=== PATIENT | female | born 1970 ===

== ENCOUNTER 2019-08-18 20:04 | Inpatient (IN) | payer OTHER ==
[~2019-08-18] VITALS: Ht 170 cm; Wt 81.0 kg
--- NOTE | 2019-08-18 20:20 | ED GI ---
General Stated Complaint: NAUSEA,BLOOD IN STOOL Source of Information: Patient Exam Limitations: No Limitations History of Present Illness Date Seen by Provider: Aug 18, 2019 Time Seen by Provider: 20:10 Initial Comments 49-year-old female who was sent to the emergency room from [facility] for hemoglobin of 6.5 and bright red rectal bleeding for the past 4 days and nausea. She denies any abdominal pain. She is alert and oriented on arrival to the emergency room. Timing/Duration: 3-4 Days Associated Symptoms: Nausea/Vomiting Allergies and Home Medications Allergies Coded Allergies: No Known Allergies (Verified Allergy, Unknown, 07/18/06) Patient Home Medication List Home Medication List Reviewed: Yes Review of Systems Review of Systems Constitutional: see HPI; No chills, No fever Gastrointestinal: See HPI, Nausea, Rectal Bleeding All Other Systems Reviewed Negative Unless Noted: Yes Past Eamhccx-Vyapht-Rrewni Hx Past Med/Social Hx: Reviewed Nursing Past Med/Soc Hx Patient Social History Recent Foreign Travel: No Contact w/Someone Who Travel: No Family Medical History Reviewed Nursing Family Hx Physical Exam Vital Signs Vital Signs - First Documented 08/18/19 20:20 Temp 37.0 Pulse 95 Resp 18 B/P (MAP) 126/74 (91) Pulse Ox 100 O2 Delivery Room Air Capillary Refill : Height/Weight/BMI Height: '" Weight: lbs. oz. kg; BMI Method: General Appearance: WD/WN, no apparent distress HEENT: pale conjunctivae (R), pale conjunctivae (L) Respiratory: chest non-tender, lungs clear, normal breath sounds, no respiratory distress, no accessory muscle use Cardiovascular: normal peripheral pulses, regular rate, rhythm, no edema, no gallop, no JVD, no murmur Gastrointestinal: normal bowel sounds, non tender, soft, no organomegaly, no pulsatile mass Genital/Rectal: normal rectal exam (no external hemorrhoids noted), other (caitie red blood. Exam was assisted by Abby GUEVARA. ) Extremities: normal capillary refill Neurologic/Psychiatric: alert, normal mood/affect, oriented x 3 Skin: normal color, warm/dry Progress/Results/Core Measures Results/Orders Lab Results Laboratory Tests Test 08/18/19 20:18 08/18/19 21:00 Range/Units White Blood Count 10.9 4.3-11.0 10^3/uL Red Blood Count 2.16 L 4.35-5.85 10^6/uL Hemoglobin 6.7 *L 11.5-16.0 G/DL Hematocrit 20 *L 35-52 % Mean Corpuscular Volume 92 80-99 FL Mean Corpuscular Hemoglobin 31 25-34 PG Mean Corpuscular Hemoglobin Concent 34 32-36 G/DL Red Cell Distribution Width 12.9 10.0-14.5 % Platelet Count 274 130-400 10^3/uL Mean Platelet Volume 9.5 7.4-10.4 FL Neutrophils (%) (Auto) 50 42-75 % Lymphocytes (%) (Auto) 43 12-44 % Monocytes (%) (Auto) 6 0-12 % Eosinophils (%) (Auto) 1 0-10 % Basophils (%) (Auto) 0 0-10 % Neutrophils # (Auto) 5.5 1.8-7.8 X 10^3 Lymphocytes # (Auto) 4.7 H 1.0-4.0 X 10^3 Monocytes # (Auto) 0.6 0.0-1.0 X 10^3 Eosinophils # (Auto) 0.1 0.0-0.3 10^3/uL Basophils # (Auto) 0.0 0.0-0.1 10^3/uL Sodium Level 136 135-145 MMOL/L Potassium Level 3.2 L 3.6-5.0 MMOL/L Chloride Level 105 98-107 MMOL/L Carbon Dioxide Level 22 21-32 MMOL/L Anion Gap 9 5-14 MMOL/L Blood Urea Nitrogen 19 H 7-18 MG/DL Creatinine 0.62 0.60-1.30 MG/DL Estimat Glomerular Filtration Rate > 60 BUN/Creatinine Ratio 31 Glucose Level 122 H 70-105 MG/DL Calcium Level 9.0 8.5-10.1 MG/DL Corrected Calcium 9.1 8.5-10.1 MG/DL Total Bilirubin 0.3 0.1-1.0 MG/DL Aspartate Amino Transf (AST/SGOT) 19 5-34 U/L Alanine Aminotransferase (ALT/SGPT) 28 0-55 U/L Alkaline Phosphatase 92 40-136 U/L Total Protein 6.0 L 6.4-8.2 GM/DL Albumin 3.9 3.2-4.5 GM/DL Amylase Level 43 25-125 U/L Lipase 31 8-78 U/L Urine Color YELLOW Urine Clarity CLEAR Urine pH 5 5-9 Urine Specific [place] 1.025 H 1.016-1.022 Urine Protein NEGATIVE NEGATIVE Urine Glucose (UA) NEGATIVE NEGATIVE Urine Ketones NEGATIVE NEGATIVE Urine Nitrite NEGATIVE NEGATIVE Urine Bilirubin NEGATIVE NEGATIVE Urine Urobilinogen NORMAL NORMAL MG/DL Urine Leukocyte Esterase 1+ H NEGATIVE Urine RBC (Auto) 1+ H NEGATIVE Urine RBC 0-2 /HPF Urine WBC 5-10 H /HPF Urine Squamous Epithelial Cells 2-5 /HPF Urine Crystals NONE /LPF Urine Bacteria FEW H /HPF Urine Casts PRESENT /LPF Urine Hyaline Casts 2-5 H /LPF Urine Mucus SMALL H /LPF Urine Culture Indicated YES My Orders Orders - JAYE GLOVER Comprehensive Metabolic Panel (08/18/19 20:07) Lipase (08/18/19 20:07) Amylase (08/18/19 20:07) Ua Culture If Indicated (08/18/19 20:07) Ed Iv/Invasive Line Start (08/18/19 20:07) Cbc With Automated Diff (08/18/19 20:07) Type And Screen (08/18/19 20:07) Ondansetron Injection (Zofran Injectio (08/18/19 21:15) Medications Given in ED Current Medications Medications Dose Ordered Sig/Marge Route Start Time Stop Time Status Last Admin Dose Admin Ondansetron HCl 4 mg ONCE ONCE IVP 08/18/19 21:15 08/18/19 21:16 DC 08/18/19 21:11 4 MG Vital Signs/I&O 08/18/19 20:20 Temp 37.0 Pulse 95 Resp 18 B/P (MAP) 126/74 (91) Pulse Ox 100 O2 Delivery Room Air Departure Communication (Admissions) Time/Spoke to Admitting Phy: 20:[address] German and she agrees to accept the patient to her services. Time/Spoke to Consulting Phy: 20:19 Discussed Denys and he agrees to consult on the patient and he recommends a clear liquid diet and plan for scope tomorrow. Impression Primary Impression: GI bleed Additional Impression: Anemia Disposition: ADMITTED INPATIENT Condition: Stable/Unchanged Admissions Decision to Admit Reason: Admit from ER (General) Decision to Admit/Date: Aug 18, 2019 Time/Decision to Admit Time: 21:45 Departure-Patient Inst. Referrals: [facility] (PCP/Family) Primary Care Physician JAYE GLOVER Aug 18, 2019 20:20
[2019-08-18 20:24] LABS: BASOPHILS % (AUTO) 0 % (0-10); EOSINOPHILS # (AUTO) 0.1 10^3/uL (0.0-0.3); EOSINOPHILS % (AUTO) 1 % (0-10); LYMPHOCYTES # (AUTO) 4.7 X 10^3 (1.0-4.0); LYMPHOCYTES % (AUTO) 43 % (12-44); MEAN CORPUSCULAR HEMOGLOBIN 31 PG (25-34); MEAN CORPUSCULAR HGB CONC 34 G/DL (32-36); MEAN CORPUSCULAR VOLUME 92 FL (80-99); MEAN PLATELET VOLUME 9.5 FL (7.4-10.4); MONOCYTES # (AUTO) 0.6 X 10^3 (0.0-1.0); MONOCYTES % (AUTO) 6 % (0-12); NEUTROPHILS # (AUTO) 5.5 X 10^3 (1.8-7.8); NEUTROPHILS % (AUTO) 50 % (42-75); PLATELET COUNT 274 10^3/uL (130-400); RED CELL DISTRIBUTION WIDTH 12.9 % (10.0-14.5); WHITE BLOOD COUNT 10.9 10^3/uL (4.3-11.0)
[2019-08-18 20:26] LABS: HEMATOCRIT 20 % (35-52); HEMOGLOBIN 6.7 G/DL (11.5-16.0)
[2019-08-18 20:48] LABS: ALANINE AMINOTRANSFERASE 28 U/L (0-55); ALBUMIN 3.9 GM/DL (3.2-4.5); ALKALINE PHOSPHATASE 92 U/L (40-136); AMYLASE 43 U/L (25-125); BILIRUBIN,TOTAL 0.3 MG/DL (0.1-1.0); BUN/CREATININE RATIO 31; CARBON DIOXIDE 22 MMOL/L (21-32); CHLORIDE 105 MMOL/L (98-107); CREATININE SERUM 0.62 MG/DL (0.60-1.30); GFR ESTIMATED > 60; GLUCOSE 122 MG/DL (70-105); LIPASE 31 U/L (8-78); POTASSIUM 3.2 MMOL/L (3.6-5.0); SODIUM 136 MMOL/L (135-145)
[2019-08-18] MEDS ORDERED: ONDANSETRON 4 MG/2 ML (SDV) Z0FRAN IVP ONE (21:15)
[2019-08-18 21:22] LABS: BILIRUBIN,URINE NEGATIVE (NEGATIVE); CLARITY,URINE CLEAR; COLOR,URINE YELLOW; GLUCOSE, URINE (UA) NEGATIVE (NEGATIVE); KETONES,URINE NEGATIVE (NEGATIVE); LEUKOCYTE ESTERASE ,URINE 1+ (NEGATIVE); NITRITE,URINE NEGATIVE (NEGATIVE); PH,URINE 5 (5-9); PROTEIN,URINE NEGATIVE (NEGATIVE); UROBILINOGEN,URINE NORMAL (NORMAL)
[2019-08-18 21:37] LABS: RBC,URINE 0-2 /HPF
[2019-08-18 21:38] LABS: BACTERIA,URINE FEW /HPF
[2019-08-18] MEDS ORDERED: fentaNYL INJECTION 100 MCG/2 ML AMP IVP ONE (21:45)
--- NOTE | 2019-08-18 22:05 | NUR ---
ISABEL PACE G admitted to room 409-1, with an admitting diagnosis of GI BLEED AND ANEMIA, on 08/18/19 from ED via , accompanied by ED STAFF AND AKOSUA.ISABEL PACE introduced to surroundings, call light, bed controls, phone, TV, temperature control, lights, meal times, smoking policy, visitor policy, side rail policy, bathrooms and showers. Patient Rights given to patient in the handbook. ISABEL PACE verbalizes understanding that [facility] is not responsible for the loss or damage to any personal effects or valuables that are kept in the patients posession during their hospitalization. ISABEL PACE verbalizes understanding of Interdisciplinary Patient Education. Patient and/or family were informed about the Rapid Response Team and its purpose.
[2019-08-18 22:30] VITALS: BP 123/69
[2019-08-18] MEDS ORDERED: ONDANSETRON 4 MG/2 ML (SDV) Z0FRAN IV PRN (23:00)
[2019-08-18] MEDS ORDERED: fentaNYL INJECTION 100 MCG/2 ML AMP IV PRN (23:00)
[2019-08-18 23:54] VITALS: BP 114/68
[2019-08-19] VITALS (12 sets, daily range): BP systolic 100–115; BP diastolic 60–75
[2019-08-19 06:16] LABS: BASOPHILS % (AUTO) 1 % (0-10); EOSINOPHILS # (AUTO) 0.1 10^3/uL (0.0-0.3); EOSINOPHILS % (AUTO) 1 % (0-10); LYMPHOCYTES # (AUTO) 2.6 X 10^3 (1.0-4.0); LYMPHOCYTES % (AUTO) 40 % (12-44); MEAN CORPUSCULAR HEMOGLOBIN 31 PG (25-34); MEAN CORPUSCULAR HGB CONC 32 G/DL (32-36); MEAN CORPUSCULAR VOLUME 94 FL (80-99); MEAN PLATELET VOLUME 9.6 FL (7.4-10.4); MONOCYTES # (AUTO) 0.5 X 10^3 (0.0-1.0); MONOCYTES % (AUTO) 7 % (0-12); NEUTROPHILS # (AUTO) 3.4 X 10^3 (1.8-7.8); NEUTROPHILS % (AUTO) 51 % (42-75); PLATELET COUNT 257 10^3/uL (130-400); RED CELL DISTRIBUTION WIDTH 13.3 % (10.0-14.5); WHITE BLOOD COUNT 6.6 10^3/uL (4.3-11.0)
[2019-08-19 06:20] LABS: HEMATOCRIT 19 % (35-52); HEMOGLOBIN 6.1 G/DL (11.5-16.0)
--- NOTE | 2019-08-19 06:35 | NUR ---
DR BUSBY NOTIFIED ABOUT PT CRITICAL HGB OF 6.1 [address] 19[address] HANNAH INFORMED ABOUT PT LABS PER DR BUSBY ORDER. DR HANNAH NEW ORDERS TO GIVE 2 UNITS OF BLOOD.
[2019-08-19 06:40] LABS: ALANINE AMINOTRANSFERASE 26 U/L (0-55); ALBUMIN 3.6 GM/DL (3.2-4.5); ALKALINE PHOSPHATASE 85 U/L (40-136); BILIRUBIN,TOTAL 0.3 MG/DL (0.1-1.0); BUN/CREATININE RATIO 24; CALCIUM 8.3 MG/DL (8.5-10.1); CARBON DIOXIDE 25 MMOL/L (21-32); CHLORIDE 108 MMOL/L (98-107); CREATININE SERUM 0.59 MG/DL (0.60-1.30); GFR ESTIMATED > 60; GLUCOSE 109 MG/DL (70-105); POTASSIUM 3.3 MMOL/L (3.6-5.0); SODIUM 139 MMOL/L (135-145); TOTAL PROTEIN 5.7 GM/DL (6.4-8.2)
[2019-08-19] MEDS ORDERED: NS IV 500 ML 500 ML IV SCH (08:00)
[2019-08-19 08:01] LABS: BASOPHILS % (MANUAL) 0 %; EOSINOPHILS % (MANUAL) 1 %; LYMPHOCYTES % (MANUAL) 41 %; MONOCYTES % (MANUAL) 3 %; NEUTROPHILS % (MANUAL) 55 %
--- NOTE | 2019-08-19 08:57 | Consultation - Surgery ---
MONIKA JANE,MED STUDENT 08/19/19 0857: History of Present Illness History of Present Illness Patient Consulted On(mi/time) 08/19/19 08:49 Date Seen by Provider: Aug 19, 2019 Time Seen by Provider: 08:30 Reason for Visit: Anemia History of Present Illness Surgery consulted regarding GI bleed 49 yo female presents today with a 4 day history of weakness, dizziness, d iarrhea, and abdominal pain. The abdominal pain is diffuse and characterized as an ache. She states the symptoms began on sunday08/15/19. She had 3 episodes of black diarrhea with bright red blood apparent. She had another episode of a black formed stool yesterday. She denies any symptoms similar to this prior. She has had a loss of appetite since Sunday. She has a 1 year history of heartburn that is relieved with Tums and worsened with spicy foods and laying flat. She admits to nausea but denies vomiting. She complains of a migraine, which she gets often and is similar in intensity and character to her previous migraines. Allergies and Home Medications Allergies Coded Allergies: NKANo Known Allergies (Verified Allergy, Unknown, 07/18/06) Home Medications Ibuprofen 200 Mg Tablet, 400 MG PO Q8H PRN for PAIN-MILD, (Reported) Past Vmxvgjj-Bdfguh-Ukwrql Hx Patient Social History Alcohol Use: Denies Use Recreational Drug Use: No Smoking Status: Never a Smoker 2nd Hand Smoke Exposure: No Recent Foreign Travel: No Contact w/Someone Who Travel: No Recent Infectious Disease Expo: No Recent Hopitalizations: No Seasonal Allergies Seasonal Allergies: No Surgeries History of Surgeries: Yes Surgeries: Section (2005) Respiratory History of Respiratory Disorde: No Cardiovascular History of Cardiac Disorders: No Neurological History of Neurological Disord: No 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 System : 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) Genitourinary History of Genitourinary Disor: No Gastrointestinal History of Gastrointestinal Di: No Musculoskeletal History of Musculoskeletal Dis: No Endocrine History of Endocrine Disorders: No HEENT History of HEENT Disorders: No Loss of Vision: Denies Hearing Impairment: Denies Cancer History of Cancer: No Psychosocial History of Psychiatric Problem: No Integumentary History of Skin or Integumenta: No Blood Transfusions History of Blood Disorders: No Family Medical History Significant Family History: Diabetes (sister), Other Conditions/Hx (patient denies any family history of colon problems including UC, cancer) Review of Systems-General Constitutional: dizziness; No fever; weakness EENTM: mouth pain (pain in tongue); No blurred vision, No double vision, No vision loss, No throat pain Respiratory: No cough; short of breath; No wheezing Cardiovascular: No chest pain, No edema Gastrointestinal: abdominal pain (diffuse); No constipation; diarrhea; No hematemesis; heartburn, loss of appetite, melena, nausea; No vomiting Genitourinary: No hematuria Musculoskeletal: No joint pain, No muscle pain Skin: No rash Psychiatric/Neurological: Anxiety, Depressed, Headache; Denies Numbness, Denies Paresthesia Physical Exam-General Problems Physical Exam Vital Signs Vital Signs - First Documented 08/18/19 20:20 Temp 37.0 Pulse 95 Resp 18 B/P (MAP) 126/74 (91) Pulse Ox 100 O2 Delivery Room Air Capillary Refill : Less Than 3 Seconds General Appearance: WD/WN, no apparent distress Eyes: Bilateral Eye PERRL, Bilateral Eye EOMI HEENT: PERRL/EOMI, pharynx normal Neck: non-tender, supple Respiratory: chest non-tender, lungs clear, normal breath sounds, no respiratory distress, no accessory muscle use Cardiovascular: regular rate, rhythm, no edema, no murmur Gastrointestinal: normal bowel sounds, non tender, soft, no organomegaly; No distended, No guarding, No rebound Extremities: normal range of motion, non-tender, no pedal edema, no calf tenderness Neurologic/Psychiatric: no motor/sensory deficits, alert, normal mood/affect, oriented x 3 Skin: normal color, warm/dry Lymphatic: no adenopathy Data Review Labs Laboratory Tests 08/18/19 20:18: White Blood Count 10.9, Red Blood Count 2.16L, Hemoglobin 6.7*L, Hematocrit 20*L , Mean Corpuscular Volume 92, Mean Corpuscular Hemoglobin 31, Mean Corpuscular Hemoglobin Concent 34, Red Cell Distribution Width 12.9, Platelet Count 274, Mean Platelet Volume 9.5, Neutrophils (%) (Auto) 50, Lymphocytes (%) (Auto) 43, Monocytes (%) (Auto) 6, Eosinophils (%) (Auto) 1, Basophils (%) (Auto) 0, Neutrophils # (Auto) 5.5, Lymphocytes # (Auto) 4.7H, Monocytes # (Auto) 0.6, Eosinophils # (Auto) 0.1, Basophils # (Auto) 0.0, Sodium Level 136, Potassium Level 3.2L, Chloride Level 105, Carbon Dioxide Level 22, Anion Gap 9, Blood Urea Nitrogen 19H, Creatinine 0.62, Estimat Glomerular Filtration Rate > 60, BUN/Creatinine Ratio 31, Glucose Level 122H, Calcium Level 9.0, Corrected Calcium 9.1, Total Bilirubin 0.3, Aspartate Amino Transf (AST/SGOT) 19, Alanine Aminotransferase (ALT/SGPT) 28, Alkaline Phosphatase 92, Total Protein 6.0L, Albumin 3.9, Amylase Level 43, Lipase 31 08/18/19 21:00: Urine Color YELLOW, Urine Clarity CLEAR, Urine pH 5, Urine Specific [place] 1.025H, Urine Protein NEGATIVE, Urine Glucose (UA) NEGATIVE, Urine Ketones NEGATIVE, Urine Nitrite NEGATIVE, Urine Bilirubin NEGATIVE, Urine Urobilinogen NORMAL, Urine Leukocyte Esterase 1+H, Urine RBC (Auto) 1+H, Urine RBC 0-2, Urine WBC 5-10H, Urine Squamous Epithelial Cells 2-5, Urine Crystals NONE, Urine Bacteria FEWH, Urine Casts PRESENT, Urine Hyaline Casts 2-5H, Urine Mucus SMALLH , Urine Culture Indicated YES 08/19/19 05:55: White Blood Count 6.6, Red Blood Count 2.00L, Hemoglobin 6.1*L, Hematocrit 19*L, Mean Corpuscular Volume 94, Mean Corpuscular Hemoglobin 31, Mean Corpuscular Hemoglobin Concent 32, Red Cell Distribution Width 13.3, Platelet Count 257, Mean Platelet Volume 9.6, Neutrophils (%) (Auto) 51, Lymphocytes (%) (Auto) 40, Monocytes (%) (Auto) 7, Eosinophils (%) (Auto) 1, Basophils (%) (Auto) 1, Neutrophils # (Auto) 3.4, Lymphocytes # (Auto) 2.6, Monocytes # (Auto) 0.5, Eosinophils # (Auto) 0.1, Basophils # (Auto) 0.0, Sodium Level 139, Potassium Level 3.3L, Chloride Level 108H, Carbon Dioxide Level 25, Anion Gap 6, Blood Urea Nitrogen 14, Creatinine 0.59L, Estimat Glomerular Filtration Rate > 60, BUN/Creatinine Ratio 24, Glucose Level 109H, Calcium Level 8.3L, Corrected Ca lcium 8.6, Total Bilirubin 0.3, Aspartate Amino Transf (AST/SGOT) 19, Alanine Aminotransferase (ALT/SGPT) 26, Alkaline Phosphatase 85, Total Protein 5.7L, Albumin 3.6, Neutrophils % (Manual) 55, Lymphocytes % (Manual) 41, Monocytes % ( Manual) 3, Eosinophils % (Manual) 1, Basophils % (Manual) 0 Assessment/Plan Assessment/Plan Assessment/Plan Anemia Possible GI bleed Melena Hematochezia Continue clear liquid diet as tolerated. Continue IVF, antiemetics, pain control. Currently getting 2 units of packed RBC. Will start bowel prep for upper and lower endoscopy planned for tomorrow morning. Clinical Quality Measures DVT/VTE Risk/Contraindication: Risk Factor Score Per Nursin RFS Level Per Nursing on Admit: 1=Low/No VTE PPX JORDAN MCFARLANE DO 08/19/19 1415: History of Present Illness History of Present Illness Time Seen by Provider: 08:35 History of Present Illness Pt denied any previous occurence of rectal bleeding. She stated she felt short of breath while at work the other day. Allergies and Home Medications Allergies Coded Allergies: NKANo Known Allergies (Verified Allergy, Unknown, 07/18/06) Home Medications Ibuprofen 200 Mg Tablet, 400 MG PO Q8H PRN for PAIN-MILD, (Reported) Patient Home Medication List Home Medication List Reviewed: Yes Review of Systems-General Other Pt denied any hx of abnormal bleeding or bruising Physical Exam-General Problems Physical Exam Lymphatic: no adenopathy (neck, axilla or groin) Assessment/Plan Assessment/Plan Assessment/Plan Consent for Colonoscopy with EGD possible biopsy. Discussed risks and complications, not limited to pain, bleeding, infection, intestinal perforation or esophageal rupture. All questions answered to her and her 's satisfaction. Supervisory-Addendum Brief Verification & Attestation Participated in pt care: history, MDM, physical Personally performed: exam, history, MDM Care discussed with: Medical Student Procedures: n/a Verification and Attestation of Medical Student E/M Service A medical student performed and documented this service in my presence. I reviewed and verified all information documented by the medical student and made modifications to such information, when appropriate. I personally performed the physical exam and medical decision making. Jordan Mcfarlane, Aug 19, 2019,14:14 MONIKA JANE,MED STUDENT Aug 19, 2019 08:57 JORDAN MCFARLANE DO Aug 19, 2019 14:15
[2019-08-19] MEDS ORDERED: IBUP-30 PO (09:26)
[2019-08-19] MEDS: HYDROmorphone 2 MG/ML VIAL (DILAUDID) IV PRN (10:49)
--- NOTE | 2019-08-19 12:07 | NUR ---
Pt is [employer] and currently NPO. 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
--- NOTE | 2019-08-19 14:05 | NUR ---
2 units blood administered this am. Bags were scanned in room, and information did not save. Verified with Marga GUEVARA.
[2019-08-19] MEDS ORDERED: BISACODYL 5 MG (DULCOLAX) TABLET PO SCH ×2 (14:40→16:00)
[2019-08-19] MEDS ORDERED: POLYETHYLENE GLYCOL 17 GM (MIRALAX) PACK PO NR (18:00)
--- NOTE | 2019-08-19 19:18 | History & Physical-Hospitalist ---
JOHANNY YEUNG [facility] 08/19/191917: History of Present Illness HPI/Chief Complaint CC: Emesis and Nausea Mrs. Guzman is a 49 yo female presenting with blood in her stool as well as N/V. Her symptoms began Sunday where she noticed blood in her stool after a BM. She noticed that her stool was darker in nature and that there was free floating blood in the toilet water. After that she experienced intermittent nausea. Up until sunday morning, she was was experiencing dry heaving. On sunday she forced herself to throw up as an attempt to alleviate her nausea. She also states that her appetite has been greatly reduced and has not really eaten in a few days. She also states that she has felt weak and shaky. Her stomach feels like it is constantly trying to purge contents in it even though she hasn't eaten anything. She states that she feels no pain and has taken nothing to alleviate her symptoms. She has taken Advil PRN for Migraine headaches for which she suffers. from. Her was used to help translate and obtain information. Source: patient, family Exam Limitations: language barrier Date Seen 08/19/19 Time Seen by a Provider: 12:00 Attending Physician Licha Busby DO [facility] Referring Physician Date of Admission Aug 18, 2019 at 21:20 Home Medications & Allergies Home Medications Reviewed patient Home Medication Reconciliation performed by pharmacy medication reconciliations hvac service technician and/or nursing. Patients Allergies have been reviewed. Allergies Allergies Coded Allergies NKANo Known Allergies (Verified Allergy, Unknown, 07/18/06) Past Neojask-Dbfvft-Ugpiks Hx Past Med/Social Hx: Reviewed Nursing Past Med/Soc Hx Patient Social History Marrital Status: Number of Children: 4 Number of living children: 4 Employed/Student: employed Alcohol Use: Denies Use Recreational Drug Use: No Smoking Status: Never a Smoker 2nd Hand Smoke Exposure: No Recent Foreign Travel: No Contact w/other who traveled: No Recent Hopitalizations: No Recent Infectious Disease Expo: No Seasonal Allergies Seasonal Allergies: No Past Medical History Surgeries: Section (2005) Currently Using CPAP: No Currently Using BIPAP: No : No Menopausal (last period 3 years ago) Loss of Vision: Denies Hearing Impairment: Denies History of Blood Disorders: No Family History Reviewed Nursing Family Hx Diabetes (sister), Other Conditions/Hx (patient denies any family history of colon problems including UC, cancer) Review of Systems Constitutional: No no symptoms reported, No see HPI, No chills, No diaphoresis, No dizziness, No fever, No malaise, No weakness, No weight gain, No weight loss, No other EENTM: No see HPI, No no symptoms reported, No ear discharge, No hearing loss, No ear pain, No blurred vision, No double vision, No eye pain, No tearing, No vision loss, No dental problems, No hoarseness, No mouth pain, No mouth swelling, No epistaxis, No nose congestion, No nose pain, No throat pain, No throat swelling, No other Respiratory: No no symptoms reported, No see HPI, No cough, No dyspnea on exertion, No hemoptysis, No orthopnea, No phlegm, No short of breath, No stridor, No wheezing, No other Cardiovascular: No no symptoms reported, No see HPI, No chest pain, No edema, No Hx of Intervention, No palpitations, No syncope, No vascular heart diseas, No other Gastrointestinal: No RUQ, No LUQ, No RLQ, No LLQ, No no symptoms reported, No see HPI, No abdominal pain, No constipation, No diarrhea, No dysphagia, No hematemesis, No heartburn, No jaundice, No loss of appetite; melena, nausea, vomiting; No other Genitourinary: No no symptoms reported, No see HPI, No decreased output, No discharge, No dysuria, No frequency, No hematuria, No hesitancy, No incontinence, No nocturia, No pain, No other : No Musculoskeletal: No no symptoms reported, No see HPI, No back pain, No gout, No joint pain, No joint swelling, No muscle pain, No muscle stiffness, No muscle cramps, No muscle twitching, No muscle weakness, No neck pain, No other Skin: No no symptoms reported, No see HPI, No change in color, No change in hair/nails, No dryness, No hx of skin cancer, No lesions, No lumps, No pruritus, No rash, No other Psychiatric/Neurological: Denies No Symptoms Reported, Denies See HPI, Denies Anxiety, Denies Depressed, Denies Emotional Problems, Denies Headache, Denies Numbness, Denies Paresthesia, Denies Pre-Existing Deficit, Denies Seizure, Denies Tingling, Denies Tremors, Denies Weakness, Denies Other Physical Exam Physical Exam Vital Signs Vital Signs - First Documented 08/18/19 20:20 Temp 37.0 Pulse 95 Resp 18 B/P (MAP) 126/74 (91) Pulse Ox 100 O2 Delivery Room Air Capillary Refill : Less Than 3 Seconds Height, Weight, BMI Height: '" Weight: lbs. oz. kg; 28.02 BMI Method: General Appearance: No Apparent Distress, WD/WN Eyes: Bilateral Eye Normal Inspection, Bilateral Eye PERRL, Bilateral Eye EOMI HEENT: PERRL/EOMI, Normal ENT Inspection, Pharynx Normal, Moist Mucous Membranes Neck: Normal Inspection, Non Tender, Supple Respiratory: Chest Non Tender, Lungs Clear, Normal Breath Sounds, No Accessory Muscle Use, No Respiratory Distress Cardiovascular: Regular Rate, Rhythm, No Edema, No Gallop, No JVD, No Murmur, Normal Peripheral Pulses Gastrointestinal: Normal Bowel Sounds, No Organomegaly, No Pulsatile Mass, Non Tender, Soft Extremity: Normal Capillary Refill, Normal Inspection, Normal Range of Motion, Non Tender, No Calf Tenderness, No Pedal Edema Neurologic/Psychiatric: Alert, Oriented x3, No Motor/Sensory Deficits, Normal Mood/Affect, 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 Assessment/Plan Admission Diagnosis Enteritis and Melana Admission Status: Observation Assessment and Plan Assessment: 1. Low Hg and HCT 2. GI Bleed 3. Low Potassium 4. History of Migraines Plan: 1. Transfuse blood to raise HG and HCT. 2. Refer to GI for endoscopy 3. Give K 4. Advil to treat migraines as needed. 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 Pt reports to have passed a large amount of blood and clots of the last several days. Repeat Hgb was 6.1, Pt is to receive two units of blood and will undergo EGD and colonoscopy tomorrow after the prep today. She denied any abdominal pain. She is having Migraine headache so I did switch from Fentanyl to Dilaudid to help her pain but otherwise denies any significant problems. Her is at the bedside. Physical Exam Physical Exam General Appearance: WD/WN, Chronically ill, Mild Distress Respiratory: Lungs Clear Cardiovascular: Regular Rate, Rhythm Gastrointestinal: Non Tender, Soft Neurologic/Psychiatric: Alert, Oriented x3, No Motor/Sensory Deficits, Normal Mood/Affect Assessment/Plan Admission Diagnosis Assessment: Severe anemia requiring transfusions GI Bleeding active- endoscopy tomorrow Migraines takes Advil frequently Plan: Monitor H/H Endoscopy tomorrow Appreciate Dr Mcfarlane Admission Status: Inpatient Order (span 2 midnights) Reason for Inpatient Admission: Sevre anemia from GI bleed Diagnosis/Problems Diagnosis/Problems (1) Anemia Status: Acute Qualifiers: Anemia type: iron deficiency Iron deficiency anemia type: unspecified iron deficiency Qualified Codes: D50.9 - Iron deficiency anemia, unspecified (2) GI bleed Status: Acute Qualifiers: GI bleed type/associated pathology: unspecified gastrointestinal hemorrhage type Qualified Codes: K92.2 - Gastrointestinal hemorrhage, unspecified Supervisory-Addendum Brief Verification & Attestation Participated in pt care: history, MDM, physical Personally performed: exam, history, MDM, supervision of care Care discussed with: Medical Student Procedures: n/a Results interpretation: Verified all documentation Verification and Attestation of Medical Student E/M Service A medical student performed and documented this service in my presence. I reviewed and verified all information documented by the medical student and made modifications to such information, when appropriate. I personally performed the physical exam and medical decision making. Licha Busby, Aug 19, 2019,19:[address] [facility] Aug 19, 2019 19:18 LICHA BUSBY DO Aug 19, 2019 19:43
[2019-08-20 04:47] VITALS: BP 108/68
[2019-08-20] MEDS: HYDROmorphone 2 MG/ML VIAL (DILAUDID) IV PRN (04:47)
[2019-08-20 06:16] LABS: BASOPHILS % (AUTO) 0 % (0-10); EOSINOPHILS # (AUTO) 0.1 10^3/uL (0.0-0.3); EOSINOPHILS % (AUTO) 1 % (0-10); HEMATOCRIT 25 % (35-52); HEMOGLOBIN 8.3 G/DL (11.5-16.0); LYMPHOCYTES # (AUTO) 3.1 X 10^3 (1.0-4.0); LYMPHOCYTES % (AUTO) 37 % (12-44); MEAN CORPUSCULAR HEMOGLOBIN 30 PG (25-34); MEAN CORPUSCULAR HGB CONC 34 G/DL (32-36); MEAN CORPUSCULAR VOLUME 90 FL (80-99); MEAN PLATELET VOLUME 9.5 FL (7.4-10.4); MONOCYTES # (AUTO) 0.6 X 10^3 (0.0-1.0); MONOCYTES % (AUTO) 7 % (0-12); NEUTROPHILS # (AUTO) 4.5 X 10^3 (1.8-7.8); NEUTROPHILS % (AUTO) 54 % (42-75); PLATELET COUNT 263 10^3/uL (130-400); RED CELL DISTRIBUTION WIDTH 15.5 % (10.0-14.5); WHITE BLOOD COUNT 8.3 10^3/uL (4.3-11.0)
[2019-08-20 06:39] LABS: ALANINE AMINOTRANSFERASE 27 U/L (0-55); ALBUMIN 3.6 GM/DL (3.2-4.5); ALKALINE PHOSPHATASE 71 U/L (40-136); BILIRUBIN,TOTAL 0.5 MG/DL (0.1-1.0); BUN/CREATININE RATIO 38; CALCIUM 8.2 MG/DL (8.5-10.1); CARBON DIOXIDE 23 MMOL/L (21-32); CHLORIDE 109 MMOL/L (98-107); CREATININE SERUM 0.55 MG/DL (0.60-1.30); GFR ESTIMATED > 60; GLUCOSE 113 MG/DL (70-105); POTASSIUM 3.1 MMOL/L (3.6-5.0); SODIUM 141 MMOL/L (135-145); TOTAL PROTEIN 5.5 GM/DL (6.4-8.2)
--- NOTE | 2019-08-20 07:20 | Progress Note - Surgery ---
MONIKA JANE,MED STUDENT 08/20/19 0720: Subjective Date Seen by a Provider: Aug 20, 2019 Time Seen by a Provider: 07:00 Subjective/Events-last exam Surgery Progress Note: 49 yo patient admitted for anemia. She states she feels similar to yesterday. She has continued to have weakness and diarrhea. She denies any abdominal pain or recent shortness of breath. She had 1 episode of vomiting yesterday and states it was clear in consistency, no black or red seen. She has continued to have black loose stools, she denies any bright red blood. She received bowel prep yesterday and has been NPO since midnight. Review of Systems General: No Chills; Fatigue; No Malaise HEENT: Head Aches; No Visual Changes Pulmonary: No Dyspnea Cardiovascular: No: Chest Pain, Edema, Lt Headedness Gastrointestinal: Nausea, Vomiting, Diarrhea; No: Abdominal Pain, Constipation Genitourinary: No Dysuria, No Hematuria Musculoskeletal: leg pain (left ) Neurological: Weakness Objective Exam Vital Signs Date Time Temp Pulse Resp B/P (MAP) Pulse Ox O2 Delivery O2 Flow Rate FiO2 08/20/19 04:47 37.0 75 18 108/68 (81) 99 Room Air 08/19/19 23:51 36.8 93 18 111/75 (87) 98 Room Air 08/19/19 20:00 100 Room Air 08/19/19 19:24 37.1 95 20 100/68 (79) 100 Room Air 08/19/19 16:00 36.4 64 20 112/70 (84) 100 Room Air 08/19/19 13:24 36.6 68 16 107/63 97 Room Air 08/19/19 11:45 37.1 87 18 106/64 (78) 98 Room Air 08/19/19 11:00 36.8 82 16 107/60 96 Room Air 08/19/19 10:39 37.0 86 17 106/60 100 Room Air 08/19/19 10:20 36.7 82 17 104/64 100 Room Air 08/19/19 08:30 36.6 92 18 115/66 99 Room Air 08/19/19 08:25 100 Room Air 08/19/19 08:15 37.0 86 18 106/60 100 Room Air 08/19/19 07:43 36.6 94 22 111/72 (85) 100 Room Air I & O 08/20/19 07:00 Intake Total 2690 ml Balance 2690 ml Capillary Refill : Less Than 3 Seconds General Appearance: No Apparent Distress, WD/WN HEENT: PERRL/EOMI, Pharynx Normal, Moist Mucous Membranes Neck: Normal Inspection, Non Tender, Supple Respiratory: Lungs Clear, Normal Breath Sounds, No Accessory Muscle Use Cardiovascular: Regular Rate, Rhythm, No Murmur Gastrointestinal: normal bowel sounds, non tender, soft, no organomegaly; No distended, No guarding, No rebound Extremity: Normal Range of Motion, No Calf Tenderness, No Pedal Edema Neurologic/Psychiatric: Alert, Oriented x3, Normal Mood/Affect Skin: Normal Color, Warm/Dry Lymphatic: No Adenopathy Results Lab Laboratory Tests 08/20/19 05:25: White Blood Count 8.3, Red Blood Count 2.74L, Hemoglobin 8.3#L, Hematocrit 25L, Mean Corpuscular Volume 90, Mean Corpuscular Hemoglobin 30, Mean Corpuscular Hemoglobin Concent 34, Red Cell Distribution Width 15.5H, Platelet Count 263, Mean Platelet Volume 9.5, Neutrophils (%) (Auto) 54, Lymphocytes (%) (Auto) 37, Monocytes (%) (Auto) 7, Eosinophils (%) (Auto) 1, Basophils (%) (Auto) 0, Neutrophils # (Auto) 4.5, Lymphocytes # (Auto) 3.1, Monocytes # (Auto) 0.6, Eosinophils # (Auto) 0.1, Basophils # (Auto) 0.0, Sodium Level 141, Potassium Level 3.1L, Chloride Level 109H, Carbon Dioxide Level 23, Anion Gap 9, Blood Urea Nitrogen 21H, Creatinine 0.55L, Estimat Glomerular Filtration Rate > 60, BUN/Creatinine Ratio 38, Glucose Level 113H, Calcium Level 8.2L, Corrected Calcium 8.5, Total Bilirubin 0.5, Aspartate Amino Transf (AST/SGOT) 16, Alanine Aminotransferase (ALT/SGPT) 27, Alkaline Phosphatase 71, Total Protein 5.5L, Albumin 3.6 Microbiology 08/18/19 Urine Culture - Final, Complete NO GROWTH Assessment/Plan Assessment/Plan Assessment/Plan Anemia Possible GI bleed Melena Continue IVF, pain control, and antiemetics. Patient is scheduled for Colonoscopy with EGD and possible biopsy for this morning. Clinical Quality Measures DVT/VTE Risk/Contraindication: Risk Factor Score Per Nursin RFS Level Per Nursing on Admit: 1=Low/No VTE PPX JORDAN MCFARLANE DO 08/20/19 0815: Subjective Time Seen by a Provider: 08:11 Assessment/Plan Assessment/Plan Assessment/Plan Pt and had no questions; will proceed with EGD and colonoscopy. Supervisory-Addendum Brief Verification & Attestation Participated in pt care: history, MDM, physical Personally performed: exam, history, MDM Care discussed with: Medical Student Procedures: n/a Verification and Attestation of Medical Student E/M Service A medical student performed and documented this service in my presence. I reviewed and verified all information documented by the medical student and made modifications to such information, when appropriate. I personally performed the physical exam and medical decision making. Jordan Mcfarlane, Aug 20, 2019,08:15 MONIKA JANE,MED STUDENT Aug 20, 2019 07:20 JORDAN MCFARLANE DO Aug 20, 2019 08:15
[2019-08-20] MEDS ORDERED: LACTATED RINGERS 1,000 ML IV ONE (07:25)
[2019-08-20 09:00] VITALS: BP 98/56
--- NOTE | 2019-08-20 09:20 | NUR ---
PT BACK TO ROOM FROM EGD/COLONOSCOPY. PT RESTING IN BED WITH NO COMPLAINTS. DENIES ANY PAIN JUST DISCOMFORT FROM PROCEDURE IN ABDOMEN. REQUESTING TO EAT. PT IS TO REMAIN NPO FOR ANOTHER 45 MIN PER RECOVERY NURSE.
[2019-08-20 09:21] VITALS: BP 109/66
[2019-08-20] MEDS ORDERED: NS IV 500 ML 500 ML ONE (09:52)
[2019-08-20] MEDS ORDERED: proPOfol 200 MG/20 ML (DIPRIVAN) VIAL IV ONE (09:56)
[2019-08-20] MEDS ORDERED: MIDAZOLAM 2 MG/2 ML (VERSED) VIAL ONE (09:56)
[2019-08-20] MEDS ORDERED: LIDOCAINE PF 2% 5 ML (XYLOCAINE) VIAL ONE (09:57)
[2019-08-20] MEDS: POTASSIUM CL 10MEQ/50ML IVPB 50 ML IV SCH ×4 (10:00→13:36)
--- NOTE | 2019-08-20 10:17 | Progress Note - Hospitalist ---
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 Pt reports to have passed a large amount of blood and clots of the last several days. Repeat Hgb was 6.1, Pt is to receive two units of blood and will undergo EGD and colonoscopy tomorrow after the prep today. She denied any abdominal pain. She is having Migraine headache so I did switch from Fentanyl to Dilaudid to help her pain but otherwise denies any significant problems. Her is at the bedside. Subjective/Events-last exam Vitals are normal and stable. Patient slept well. Patient was NPO at 12 am for EGD and Colonoscopy this morning. Received laxative to prep her. Voiding and stooling well. No episodes of emesis or nausea. Migraine pain is still present but manageable. Review of Systems General: No Chills, No Night Sweats, No Fatigue, No Malaise, No Appetite, No Other HEENT: Head Aches; No Visual Changes, No Eye Pain, No Ear Pain, No Dysphasia, No Sinus Congestion, No Post Nasal Drip, No Sore Throat, No Other Pulmonary: No Dyspnea, No Cough, No Pleuritic Chest Pain, No Other Cardiovascular: No: Chest Pain, Palpitations, Orthopnea, Paroxysmal Noc. Dyspnea, Edema, Lt Headedness, Other Gastrointestinal: Melena; No: Nausea, Vomiting, Abdominal Pain, Diarrhea, Constipation, Hematochezia, Other Genitourinary: No Dysuria, No Frequency, No Incontinence, No Hematuria, No Retention, No Other Musculoskeletal: No: other, neck pain, shoulder pain, arm pain, back pain, hand pain, leg pain, foot pain Neurological: No: Weakness, Numbness, Incoordination, Change in speech, Confusion, Seizures, Other Objective Exam Vital Signs Vital Signs Date Time Temp Pulse Resp B/P (MAP) Pulse Ox O2 Delivery O2 Flow Rate FiO2 08/20/19 09:21 36.7 75 18 109/66 (80) 97 Room Air Capillary Refill : Less Than 3 Seconds General Appearance: No Apparent Distress, WD/WN HEENT: PERRL/EOMI, Normal ENT Inspection, Moist Mucous Membranes Respiratory: Chest Non Tender, Lungs Clear, Normal Breath Sounds, No Accessory Muscle Use, No Respiratory Distress Cardiovascular: Regular Rate, Rhythm, No Edema, No Gallop, No JVD, No Murmur, Normal Peripheral Pulses Gastrointestinal: Normal Bowel Sounds, Non Tender, Soft Extremity: Normal Capillary Refill, Normal Inspection, Normal Range of Motion, Non Tender, No Calf Tenderness, No Pedal Edema Neurologic/Psychiatric: Alert, Oriented x3, No Motor/Sensory Deficits, Normal 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 Assessment/Plan Assessment and Plan Assess & Plan/Chief Complaint Assessment: 1. Low Hg and HCT 2. GI Bleed 3. Low Potassium 4. History of Migraines Plan: 1. Transfuse blood to raise HG and HCT. 2. Refer to GI for endoscopy 3. Give K 4. Advil to treat migraines as needed. Clinical Quality Measures DVT/VTE Risk/Contraindication: Risk Factor Score Per Nursin RFS Level Per Nursing on Admit: 1=Low/No VTE PPX LICHA BUSBY DO 08/20/192053: Diagnosis/Problems Diagnosis/Problems (1) Duodenal ulcer (2) Anemia Status: Acute Qualifiers: Qualified Codes: D50.9 - Iron deficiency anemia, unspecified (3) GI bleed Status: Acute Qualifiers: Qualified Codes: K92.2 - Gastrointestinal hemorrhage, unspecified Supervisory-Addendum Brief Verification & Attestation Participated in pt care: history, MDM, physical Personally performed: exam, history, MDM, supervision of care Care discussed with: Medical Student Procedures: n/a Results interpretation: Verified all documentation Verification and Attestation of Medical Student E/M Service A medical student performed and documented this service in my presence. I rev iewed and verified all information documented by the medical student and made modifications to such information, when appropriate. I personally performed the physical exam and medical decision making. Licha Busby Aug 20, 2019,20:54 JOHANNY YEUNG [facility] Aug 20, 2019 10:17 LICHA BUSBY DO Aug 20, 2019 20:54
--- NOTE | 2019-08-20 10:39 | Anesthesia-General Post-Op ---
MAC Patient Condition Mental Status/LOC: Same as Preop Cardiovascular: Satisfactory Nausea/Vomiting: Absent Respiratory: Satisfactory Pain: Controlled Complications: Absent Post Op Complications Complications None Follow Up Care/Instructions Patient Instructions None needed. Anesthesiology Discharge Order Discharge Order Patient is doing well, no complaints, stable vital signs, no apparent adverse anesthesia problems. No complications reported per nursing. SIMONE SHEN CRNA Aug 20, 2019 10:39
--- NOTE | 2019-08-20 11:50 | NUR ---
DR HANNAH GAVE ORDERS FOR REGULAR DIET. PT NOTIFIED OF THIS, EDUCATION GIVEN ON ULCER DIET.
[2019-08-20 12:00] VITALS: BP 109/71
[2019-08-20] MEDS ORDERED: SUCR1TAB36 PO (12:52)
[2019-08-20] MEDS ORDERED: OMEP40CA36 PO (12:52)
--- NOTE | 2019-08-20 12:56 | Discharge Inst-Surgical ---
Discharge Inst-Surgical Reconcile Patient Problems Problems Reviewed?: Yes Depart Medication/Instructions New, Converted or Re-Newed RX: Transmitted to Pharmacy Patient Instructions Follow up Appt: Make appointment for 1 week. [phone] Instructions: No strenuous activity. May shower in 24 hours or tub bath. No Smoking Symptoms to Report: Appetite Changes, Extremity Discoloration, Numbness/Tingling, Swelling Increased, Bleeding Excessive, Eyesight Changes, Pain Increased, Urine Color Change, Constipation(Persistent), Fever over 101 degree F, Pain/Pressure in chest, Urinating Difficulty, Cough Up/Vomit Blood, Heart Beat Irreg/Pounding, Pain/Pressure in jaw, Cramps in feet or legs, Lightheadedness, Pain/Pressure in shoulder, Diarrhea(Persistent), Memory Changes Suddenly, Questions/Concerns, Weight gain consecutive days, Dizziness/Fainting, Nausea/Vomiting, Shortness of Breath, Weight gain over 2 pounds If questions or concerns contact your physician Or seek help at emergency department. Activity Activity as Tolerated: Yes Driving Instructions: You May Drive Diet Discharge Diet: No Restrictions Diet After 24 Hours: Clear Liquid if Nauseous If Any Problems/Questions/Issu: Contact Your Physician, Go to Emergency Room Skin/Wound Care Infection Signs and Symptoms: Temperature Above 101 F DG HANNAH DO Aug 20, 2019 12:56
--- NOTE | 2019-08-20 13:25 | Discharge Summary ---
[facility] 08/20/19 1321: Discharge Summary Hospital Course Was the Problem List Reviewed?: Yes Problems/Dx: (1) Anemia Status: Acute Qualifiers: Qualified Codes: D50.9 - Iron deficiency anemia, unspecified (2) GI bleed Status: Acute Qualifiers: Qualified Codes: K92.2 - Gastrointestinal hemorrhage, unspecified Hospital Course Date of Admission: Aug 18, 2019 at 21:20 Admission Diagnosis : Family Physician/Provider: [place] Date of Discharge: 08/20/19 Discharge Diagnosis: [ ] Hospital Course: [ ] Mrs. Guzman was admitted for enteritis, hypokalemia and melana. During her stay she was given KCl and blood products. She had and EGD/Colonoscopy, where they diagnosed her with a Duodenal Ulcer. She was also consulted about seeing her PCP and getting on migraine prophylaxis due to continued use of Advil, which was thought to contribute to her ulcer formation. Labs and Pending Lab Test: Laboratory Tests 08/20/19 05:25: White Blood Count 8.3, Red Blood Count 2.74L, Hemoglobin 8.3#L, Hematocrit 25L, Mean Corpuscular Volume 90, Mean Corpuscular Hemoglobin 30, Mean Corpuscular Hemoglobin Concent 34, Red Cell Distribution Width 15.5H, Platelet Count 263, Mean Platelet Volume 9.5, Neutrophils (%) (Auto) 54, Lymphocytes (%) (Auto) 37, Monocytes (%) (Auto) 7, Eosinophils (%) (Auto) 1, Basophils (%) (Auto) 0, Neutrophils # (Auto) 4.5, Lymphocytes # (Auto) 3.1, Monocytes # (Auto) 0.6, Eosinophils # (Auto) 0.1, Basophils # (Auto) 0.0, Sodium Level 141, Potassium L evel 3.1L, Chloride Level 109H, Carbon Dioxide Level 23, Anion Gap 9, Blood Urea Nitrogen 21H, Creatinine 0.55L, Estimat Glomerular Filtration Rate > 60, BUN/Creatinine Ratio 38, Glucose Level 113H, Calcium Level 8.2L, Corrected Calcium 8.5, Total Bilirubin 0.5, Aspartate Amino Transf (AST/SGOT) 16, Alanine Aminotransferase (ALT/SGPT) 27, Alkaline Phosphatase 71, Total Protein 5.5L, Albumin 3.6 08/20/19 12:58: Lab Scanned Report Transfusion Reaction Form Microbiology 08/18/19 Urine Culture - Final, Complete NO GROWTH Home Meds Active Omeprazole 40 Mg Capsule. 40 Mg PO BID Carafate (Sucralfate) 1 Gm Tablet 1 Gm PO ACHS Reported Advil (Ibuprofen) 200 Mg Tablet 400 Mg PO Q8H PRN Assessment/Pt Instructions Assessment: 1. Duodenal Ulcer 2. Migraine Plan: 1. Resume normal diet 2. Take PPI to decrease acid production 3. See PCP for migraine treatment 4. Go to hospital if symptoms worsen. Discharge Planning: >30 minutes discharge planning Discharge Instructions Discharge Diet: No Restrictions Activity as Tolerated: Yes Discharge Physical Examination Vital Signs Vital Signs Date Time Temp Pulse Resp B/P (MAP) Pulse Ox O2 Delivery O2 Flow Rate FiO2 08/20/19 12:00 37.6 71 20 109/71 (84) 99 Room Air General Appearance: No Apparent Distress, WD/WN HEENT: PERRL/EOMI, Normal ENT Inspection, Moist Mucous Membranes Respiratory: Chest Non Tender, Lungs Clear, Normal Breath Sounds, No Accessory Muscle Use, No Respiratory Distress Cardiovascular: Regular Rate, Rhythm, No Edema, No Gallop, No JVD, No Murmur, Normal Peripheral Pulses Gastrointestinal: Normal Bowel Sounds, Non Tender, Soft Extremity: Normal Capillary Refill, Non Tender, No Pedal Edema Skin: Normal Color, Warm/Dry Neurologic/Psychiatric: Alert, Oriented x3, No Motor/Sensory Deficits, Normal 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 Low Hg and HCT 2. GI Bleed 3. Low Potassium 4. History of Migraines Plan: 1. Transfuse blood to raise HG and HCT. 2. Refer to GI for endoscopy 3. Give K 4. Advil to treat migraines as needed. (1) Anemia Status: Acute Qualifiers: Qualified Codes: D50.9 - Iron deficiency anemia, unspecified (2) GI bleed Status: Acute Qualifiers: Qualified Codes: K92.2 - Gastrointestinal hemorrhage, unspecified Clinical Quality Measures DVT/VTE Risk/Contraindication: Risk Factor Score Per Nursin RFS Level Per Nursing on Admit: 1=Low/No VTE PPX LICHA BUSBY DO 08/20/192055: Discharge Summary Hospital Course Was the Problem List Reviewed?: Yes Hospital Course Hospital Course: Pt had an uneventful hospital course. She was admitted due to severe anemia of 6.9 [address] with rectal bleeding[address] Dr[address] Mcfarlane was consulted and prepped her for EGD and colonoscopy and did require two units of packed red blood cells. Hypokalemia was corrected with IV Potassium prior to DC EGD showed duodenal ulcers biopsies taken. She will see Dr. Mcfarlane in one week for follow up and she will avoid anti inflammatories and maintain DC medication per Dr. Williamson. Assessment/Pt Instructions PCP 1 week Discharge Planning: <30 minutes discharge planning Discharge Instructions Discharge Diet: No Restrictions Activity as Tolerated: Yes Discharge Physical Examination General Appearance: No Apparent Distress, WD/WN Allergies: Coded Allergies: NKANo Known Allergies (Verified Allergy, Unknown, 07/18/06) Supervisory-Addendum Brief Verification & Attestation Participated in pt care: history, MDM, physical Personally performed: exam, history, MDM, supervision of care Care discussed with: Medical Student Procedures: n/a Results interpretation: Verified all documentation Verification and Attestation of Medical Student E/M Service A medical student performed and documented this service in my presence. I reviewed and verified all information documented by the medical student and made modifications to such information, when appropriate. I personally performed the physical exam and medical decision making. Licha Busby, Aug 20, 2019,20:55 [facility] Aug 20, 2019 13:21 LICHA BUSBY DO Aug 20, 2019 20:56
--- NOTE | 2019-08-20 14:13 | OPERATIVE REPORT ---
DATE OF SERVICE: PREOPERATIVE DIAGNOSES: Anemia, melena, possible rectal bleed. POSTOPERATIVE DIAGNOSES: 1. Duodenal ulcer. 2. Gastritis. 3. Hiatal hernia. 4. Internal hemorrhoids. 5. Poor prep. PROCEDURES PERFORMED: 1. Esophagogastroduodenoscopy with biopsy. 2. Colonoscopy. SURGEON: Jordan Mcfarlane DO. REVIEW RN: Gracy Mo MS3. SPECIMEN: Two biopsies from the duodenum, one biopsy from antrum, biopsy of body of stomach, and 2 biopsies from the GE junction. BLOOD LOSS: Scant. FLUIDS: Per Anesthesia. POSTOPERATIVE CONDITION: Stable. INDICATION FOR PROCEDURE: The patient is a 49-year-old female who came in with profound anemia and reported some melena, possible hematochezia, needed a workup. FINDINGS: The patient had some duodenal ulcers, looked like there had been recently bleeding. She also had some severe gastritis, small hiatal hernia. Nothing obvious seen in the colon, but there was a lot of retained liquid fecal material, unable to get all of it suctioned out. I did see some small hemorrhoids, but nothing else obvious. PROCEDURE NOTE: After informed consent was obtained, the patient was brought to the endoscopy suite and placed in the left lateral decubitus position. She was administered IV sedation by the RECTIFYING OPERATOR who then monitored her vitals the entire time, heart rate, blood pressure, pulse ox and the scope was inserted down the mouth through the esophagus into the stomach. Upon entering the stomach, noted some inflammation and gastritis, pushed into the duodenum. Duodenum looked like we saw some ulcers, some that had been recently bleeding. These were just in the very first portion just past the pylorus, we pushed pass and into the second portion of duodenum. There are no ulcerations pulled back into just past the pylorus and the duodenum and did 2 biopsies here, then pulled back into the antrum, did a biopsy of antrum. Retroflexed the scope, saw some more gastritis, did a biopsy the body of stomach, saw a small hiatal hernia, took a picture and then pulled into the GE junction, did 2 biopsies here. Suctioned the air out of the stomach and then pulled the scope up the esophagus and out the mouth. Switched camera, switched gloves, went down below, started the colonoscopy, lot of retained black liquid stool, able to push all the way to about 140 cm, able to get to the cecum, took a picture of appendiceal orifice and then able to push into the terminal ileum and noted more melena in the terminal ileum, took a picture here and then slowly withdrew the scope insufflating to look circumferentially at the fonseca looking at the cecum up the ascending colon to the hepatic flexure, down the transverse colon, splenic flexure, into the descending colon down the sigmoid and finally into the rectum. All throughout here, there was a lot of black liquid stool, able to suction some of it but not all of it out, so could not completely clear the colon for polyps, but did not see any large masses or pathology. Retroflexed the scope in the rectal vault, saw some minimal internal hemorrhoids, took a picture and then removed the scope. The patient tolerated the procedure. She was recovered in endoscopy suite. Job ID: [id number] DocumentID: [id number] Dictated Date: 08/20/2019 09:10:13 Certified Coding Specialist Date: 08/20/2019 14:12:31 Dictated By: JORDAN MCFARLANE DO
[2019-08-20 15:15] VITALS: BP 109/71
--- NOTE | 2019-08-26 10:00 | Physician Query Clarification ---
PQ-Further Specificity Admission/Discharge Admission Date: Aug 18, 2019 at 21:20 Discharge Date: Aug 20, 2019 at 15:19 The medical record reflects the following clinical scenario: History/Risk Factors: Iron deficiency anemia, melena Clinical Findings: The patient had some duodenal ulcers, looked like there had been recently bleeding. She also had some severe gastritis, Hgb/Hct 6.7/20 Treatment: Transfusion 2 Units PRBC, EGD w/bx and colonoscopy, PPI Question: Can you further specify iron deficiency anemia per the clinical indicators above? Please document a response in the Progress Notes or Discharge Summary. 1. iron deficiency anemia due to acute blood loss 2. iron deficiency anemia due to chronic blood loss 3. iron deficiency anemia not otherwise specified 3. Other, with explanation of the clinical findings. 4. Clinically undetermined, no explanation for the clinical findings. PHYSICIAN RESPONSE Can you specify per above: 1 Please remember a lack of response to the above will prompt a phone page by CDI/Coding staff. In responding to this query, please exercise your independent professional judgment. The purpose of this communication is to more accurately reflect the complexity of your patients condition. The fact that a question is asked does not imply that any particular answer is desired or expected. Thank you for your timely response to this clarification. Requestors name: Efra THIS PHYSICIAN QUERY FORM IS A PERMANENT PART OF THE MEDICAL RECORD EFRA DACOSTA Aug 26, 2019 10:00 GILES BUSBY DO Aug 26, 2019 20:34
--- NOTE | 2019-08-26 10:07 | Physician Query Clarification ---
PQ-Further Specificity Admission/Discharge Admission Date: Aug 18, 2019 at 21:20 Discharge Date: Aug 20, 2019 at 15:19 The medical record reflects the following clinical scenario: History/Risk Factors: Melena, iron deficiency anemia Clinical Findings: The patient had some duodenal ulcers, looked like there had been recently bleeding. She also had some severe gastritis, Hgb/Hct 6.7/20 Treatment: transfused 2 U PRBC's, EGD w/bx and colonoscopy, PPI Question: Can you further specify the cause of the GI bleed per the clinical indicators above? Please document a response in the Progress Notes or Discharge Summary. 1. GI bleed due to duodenal ulcer only 2. GI bleed due to duodenal ulcer and severe gastritis 3. Other, with explanation of the clinical findings. 4. Clinically undetermined, no explanation for the clinical findings. PHYSICIAN RESPONSE Can you specify per above: 2 Please remember a lack of response to the above will prompt a phone page by CDI/Coding staff. In responding to this query, please exercise your independent professional judgment. The purpose of this communication is to more accurately reflect the complexity of your patients condition. The fact that a question is asked does not imply that any particular answer is desired or expected. Thank you for your timely response to this clarification. Requestors name: Efra THIS PHYSICIAN QUERY FORM IS A PERMANENT PART OF THE MEDICAL RECORD EFRA DACOSTA Aug 26, 2019 10:07 GILES BUSBY DO Aug 26, 2019 20:34
--- NOTE | 2019-08-26 10:11 | Physician Query Clarification ---
PQ-Further Specificity Admission/Discharge Admission Date: Aug 18, 2019 at 21:20 Discharge Date: Aug 20, 2019 at 15:19 The medical record reflects the following clinical scenario: History/Risk Factors: Melena, iron deficiency anemia Clinical Findings: The patient had some duodenal ulcers, looked like there had been recently bleeding. She also had some severe gastritis, Hgb/Hct 6.7/20 Treatment: transfused 2 U PRBC's, EGD w/bx and colonoscopy, PPI Question: Can you further specify the primary condition responsible for IP admission after study per the clinical indicators above? Please document a response in the Progress Notes or Discharge Summary. 1. Duodenal ulcer with bleed 2. iron deficiency anemia 3. Either duodenal ulcer with bleed and iron deficiency anemia 3. Other, with explanation of the clinical findings. 4. Clinically undetermined, no explanation for the clinical findings. PHYSICIAN RESPONSE Can you specify per above: 1 Please remember a lack of response to the above will prompt a phone page by CDI/Coding staff. In responding to this query, please exercise your independent professional judgment. The purpose of this communication is to more accurately reflect the complexity of your patients condition. The fact that a question is asked does not imply that any particular answer is desired or expected. Thank you for your timely response to this clarification. Requestors name: Efra THIS PHYSICIAN QUERY FORM IS A PERMANENT PART OF THE MEDICAL RECORD EFRA DACOSTA Aug 26, 2019 10:11 GILES BUSBY DO Aug 26, 2019 20:35
== END 2019-08-20 15:19 | disposition home or self-care (01) | DRG 378 ==
LOC: EDUNIT# 20:04 → ER 20:05 → INTOOBSV 21:20 → OBSVTOIN 21:20 → UNDOADMOB 21:20 → 4TH 21:20 → UNDODISIN 08-20 15:19
PROVIDERS: ADMIT Internal Medicine; ATTEND Internal Medicine
PROC: 0DB68ZX Excision of Stomach, Via Natural or Artificial Opening Endoscopic, Diagnostic (ICD-10-PCS; 2019-08-20)
PROC: 0DB48ZX Excision of Esophagogastric Junction, Via Natural or Artificial Opening Endoscopic, Diagnostic (ICD-10-PCS; 2019-08-20)
PROC: 0DB98ZX Excision of Duodenum, Via Natural or Artificial Opening Endoscopic, Diagnostic (ICD-10-PCS; principal; 2019-08-20 08:00)
PROC: 0DB78ZX Excision of Stomach, Pylorus, Via Natural or Artificial Opening Endoscopic, Diagnostic (ICD-10-PCS; 2019-08-20 08:00)
DX: K26.4 Chronic or unspecified duodenal ulcer with hemorrhage (principal); D62 Acute posthemorrhagic anemia; K29.71 Gastritis, unspecified, with bleeding; G43.909 Migraine, unspecified, not intractable, without status migrainosus; F41.9 Anxiety disorder, unspecified; F32.9 Major depressive disorder, single episode, unspecified; K44.9 Diaphragmatic hernia without obstruction or gangrene; K64.8 Other hemorrhoids; E87.6 Hypokalemia
CPT/HCPCS: 36415; 80053; 81000; 82150; 83690; 85007; 85025; 85027; 86850; 86900; 86901; 86920; 87081; 87088; 88305; 96374; 96375

== ENCOUNTER 2019-10-02 14:51 | Outpatient (RCR) | payer OTHER ==
[~2019-10-02 14:51] MED LIST: IBUP-30 PO; OMEP40CA27 PO; SUCR1TAB36 PO
== END 2019-12-31 | disposition home or self-care (01) ==
LOC: LAB 14:51
PROVIDERS: ATTEND Surgery
DX: Z09 Encounter for follow-up examination after completed treatment for conditions other than malignant neoplasm (principal); B96.81 Helicobacter pylori [H. pylori] as the cause of diseases classified elsewhere
CPT/HCPCS: 36415; 87338